=== PATIENT | female | born 1985 | race American Indian/Alaskan Native ===

== ENCOUNTER 2017-04-26 08:06 | Outpatient (CLI) | payer OTHER ==
--- NOTE | 2017-04-26 14:41 | Mammography Report ---
BILATERAL DIGITAL DIAGNOSTIC MAMMOGRAM with CAD and BILATERAL BREAST ULTRASOUND: 04/26/17 08:30:00 CLINICAL: 31-year-old with a history of a recent right palpable breast lump. She says that has resolved and she no longer feels it. The requisition indicates bilateral breast lumps. Recent bilateral greenish nipple discharge. COMPARISON:None. These are studies. FINDINGS: The breasts are heterogeneously dense, which may obscure small masses and the breasts are sufficiently dense limit the sensitivity of mammography.No mass, architectural distortion or suspicious calcifications . Ultrasound of the right breast (including all four quadrants and the retroareolar area) was performed and demonstrated normal fibroglandular and fatty structures. No mass, cyst or shadowing. Ultrasound of the left breast (including all four quadrants and the retroareolar area) was performed and demonstrated a single benign cyst 1 o'clock 7 cm from the nipple measuring 8 x 5 x 8 mm. No solid mass or shadowing. Otherwise normal fibroglandular and fatty structures. No mass, other cysts or shadowing. IMPRESSION: Negative right breast. Single benign cyst of the left breast. BI-RADS CATEGORY: 2 -- Benign RECOMMENDATION: Clinical follow-up and routine mammographic screening based on ACS guidelines. ACR BI-RADS MAMMOGRAPHIC CODES: 0 = Needs additional imaging evaluation; 1 = Negative; 2 = Benign; 3 = Probably benign; 4 = Suspicious; 5 = Malignant; 6 = Known biopsy-proven malignancy COMMENT: 1. Dense breast tissue, i.e., adenosis, fibrocystic changes, etc., may obscure an underlying neoplasm. 2. Approximately 10% of cancers are not detected with mammography. 3. A negative mammography report should not delay biopsy if a clinically suspicious mass is present. COMMENT: Patient follow-up letters are generated by our [employer] application.
== END 2017-04-26 08:07 | disposition home or self-care (01) ==
LOC: MAMMO 08:06
PROVIDERS: ATTEND Family Medicine
DX: N60.02 Solitary cyst of left breast (principal); N64.52 Nipple discharge; Z80.3 Family history of malignant neoplasm of breast
CPT/HCPCS: 77066